=== PATIENT | female | born 1955 | race Caucasian/White ===

== ENCOUNTER 2017-01-05 11:28 | Emergency (ER) | payer OTHER ==
[2017-01-05 11:36] VITALS: BP 136/96; PULSE 91; TEMP 97.8; BMI 28.3
--- NOTE | 2017-01-05 11:38 | PDOC ---
History of Present Illness - General Chief Complaint: Back Pain Stated Complaint: BACK PAIN Time Seen by Provider: 01/05/17 11:29 History Source: Patient Exam Limitations: No Limitations - History of Present Illness Initial Comments: 01/05/17 11:29 This patient is a 61 y/o female with a no significant past medical history presents with complaints of "back pain" in the lower lumbar region x 4 days. The pain began on Wednesday when she was about to sit down.The pain is constant and is exacerbated by movement, and slightly improved with cold compresses. Patient went to urgent care on Wednesday and was prescribed cyclobenzaprine 10mg, Naproxen 500mg, etc The pain is described as achy in nature and at times shooting and rated 10/10. The pain radiates around her hips towards the front. The patient has a similar episode 2 years ago where she saw ortho and went to physical therapy. She states she has arthritic changes in her spine. She states pain has worsened which prompted her ER visit Denies: History of known trauma, fevers without source, weakness, tingling, loss of sensation or bladder or bowel incontinence. Pt denies history of pain worse at night, h/o DM or Renal Failure. Pt denies history of IVDU, recurrent systemic infections, immunosuppression. Pt denies recent spinal fracture/ procedure. GENERAL/CONSTITUTIONAL: No: fever, chills, weakness, loss of appetite. HEAD, EYES, EARS, NOSE AND THROAT: No: change in vision, ear pain, discharge, sore throat, throat swelling. CARDIOVASCULAR: No: chest pain, lightheadedness, palpitations, syncope RESPIRATORY: No: cough, shortness of breath, wheezing, hemoptysis, stridor. GASTROINTESTINAL: No: nausea, vomiting, diarrhea, abdominal cramping, rectal bleeding, constipation. GENITOURINARY: No: dysuria, hematuria, frequency, urgency, flank pain. MUSCULOSKELETAL: Yes: back pain No: neck pain, joint pain, muscle swelling or pain SKIN: No: lesions, pallor, rash or easy bruising. NEUROLOGIC: No: headache, vertigo, paresthesias, weakness ENDOCRINE: No: unexplained weight gain or loss HEMATOLOGIC/LYMPHATIC: No: anemia, easy bleeding, swelling nodes. GENERAL: The patient is in no acute distress. HEAD: Normal with no signs of trauma. EYES: PERRLA, EOMI, sclera anicteric, conjunctiva clear. ENT: Ears normal, nares patent, oropharynx clear without exudates. Moist mucous membranes. NECK: Normal range of motion, supple without lymphadenopathy, JVD, or masses. LUNGS: Breath sounds equal, clear to auscultation bilaterally. No wheezes, and no crackles. HEART:Regular rate and rhythm, normal S1 and S2 without murmur, rub or gallop. ABDOMEN: Soft, nontender, normoactive bowel sounds. No guarding, no rebound. No masses palpable. EXTREMITIES: Normal range of motion, no edema. No clubbing or cyanosis. No erythema, or tenderness. NEUROLOGICAL: No evidence of kyphosis No evidence of scoliosis Pt is/is not able to bend forward, extension of the back seems to help the pain Midline tenderness Paraspinal tenderness (-) tripod sign (+) left sided straight leg raise (+) femoral stretch test (L2-L4) Motor: L4 - Kicking out intact but causes left back pain L5 - dorsiflexing ankle and great toe causes left back pain S1 - plantar flexion causes left back pain Sensation intact L4/ L5/ S1 MUSCULOSKELETAL: Back non tender to palpation, no CVA tenderness SKIN: Warm, Dry, normal turgor, no rashes or lesions noted. 01/05/17 11:48 01/05/17 12:01 Past History - Past Medical History Allergies/Adverse Reactions: Allergies Allergy/AdvReac Type Severity Reaction Status Date / Time No Known Drug Allergies Allergy Verified 01/05/17 11:29 Home Medications: Ambulatory Orders Cyclobenzaprine HCl 5 mg PO ASDIR 01/05/17 Lidocaine 5% Patch [Lidoderm Patch -] 1 patch TP DAILY PRN #30 patch 01/05/17 Metaxalone [Skelaxin] 800 mg PO ASDIR 01/05/17 Naproxen [Naprosyn -] 500 mg PO ASDIR 01/05/17 Oxycodone HCl/Acetaminophen [Percocet 5-325 mg Tablet -] 1 tab PO Q6H PRN #12 tablet MDD 4 01/05/17 Anemia: No Asthma: No Cancer: No Cardiac Disorders: No CVA: No COPD: No CHF: No Dementia: No Diabetes: No GI Disorders: No Disorders: No HTN: No Hypercholesterolemia: No Liver Disease: No Seizures: No Thyroid Disease: No - Surgical History Abdominal Surgery: No Appendectomy: Yes (1995) Cardiac Surgery: No Cholecystectomy: No Lung Surgery: No Neurologic Surgery: No Orthopedic Surgery: No - Suicide/Smoking/Psychosocial Hx Smoking History: Former smoker Have you smoked in the past 12 months: No If you are a former smoker, when did you quit?: 1986 Hx Alcohol Use: Yes (SOCIAL WINE) Drug/Substance Use Hx: No Substance Use Type: Alcohol Hx Substance Use Treatment: No Medical Decision Making - Medical Decision Making 01/05/17 12:16 Will do x ray (pt states she has had arthritis L4, L5) ? compression fracture Will give Toradol and Percocet Will re assess Pt has PT appointment at 3pm 01/05/17 13:05 X ray read as negative Will discharge to home Follow up with PMD Return to the ER for any other concerns or complaints *DC/Admit/Observation/Transfer Diagnosis at time of Disposition: Back pain Qualifiers: Back pain location: low back pain Chronicity: chronic Back pain laterality: left Sciatica presence: with sciatica Sciatica laterality: sciatica of left side Qualified Code(s): M54.42 - Lumbago with sciatica, left side; G89.29 - Other chronic pain - Discharge Dispostion Disposition: HOME Condition at time of disposition: Stable Admit: No - Referrals Referrals: Tonia Das MD [Primary Care Provider] - Florencio Jim MD [Staff Physician] - - Patient Instructions Printed Discharge Instructions: DI for Low Back Pain, DI for Back Pain With Sciatica Additional Instructions: MS Og Thank you for coming in to the ER today Please follow up with your PMD within 1-2 days Please take medications as prescribed Please return to the ER for any other concerns or complaints
[2017-01-05] MEDS ORDERED: KETOROLAC TROMETHAMINE 30 MG/1 ML VIAL IM ONE (12:00)
[2017-01-05] MEDS ORDERED: KETOROLAC TROMETHAMINE 30 MG/1 ML VIAL ONE (12:05)
== END 2017-01-05 13:30 | disposition home or self-care (01) ==
LOC: FER 11:28
PROC: 3E0333Z Introduction of Anti-inflammatory into Peripheral Vein, Percutaneous Approach (ICD-10-PCS; principal; 2017-01-05)
DX: M54.42 Lumbago with sciatica, left side (principal); G89.29 Other chronic pain; Z87.891 Personal history of nicotine dependence
CPT/HCPCS: 72100-TC; 99283-25

== ENCOUNTER 2023-09-19 12:26 | Emergency (ER) | payer OTHER, MEDICARE ==
[2023-09-19 12:49] VITALS: BP 123/65; PULSE 64; RESP 18; TEMP 98; BMI 26.6
== END 2023-09-19 15:56 | disposition home or self-care (01) ==
LOC: FER 12:26
DX: S93.402A Sprain of unspecified ligament of left ankle, initial encounter (principal); X50.1XXA Overexertion from prolonged static or awkward postures, initial encounter; Y93.H2 Activity, gardening and landscaping
CPT/HCPCS: 73610-TC-LT-FY; 73630-TC-LT; 99283-25